=== PATIENT | male | born 1965 | race Caucasian/White ===

== ENCOUNTER 2018-06-26 07:56 | Day surgery (SDC) | payer OTHER ==
[~2018-06-26] VITALS: Ht 175.3 cm; Wt 67.6 kg
[~2018-06-26 07:56] MED LIST: SIMVASTATIN20 MG PO; THIOLA100 MG PO; TOPCARE ASPIRIN81 MG PO
[2018-06-26 08:14] VITALS: BP 126/84; PULSE 78; TEMP 97.8
[2018-06-26] MEDS ORDERED: UROCIT-K 5540 MG/TAB PO (08:18)
[2018-06-26 09:45] VITALS: BP 126/92; PULSE 70; TEMP 98
--- NOTE | 2018-06-26 09:45 | NUR ---
TO BAY 3 VIA CART FROM [facility] ROOM. PT WALKED TO CHAIR. IN ROOM, CALL LIGHT IN REACH, PT TAKES WATER AND MUFFIN
[2018-06-26 10:00] VITALS: BP 110/86; PULSE 59
[2018-06-26 10:15] VITALS: BP 103/68; PULSE 59
[2018-06-26 10:30] VITALS: BP 110/74; PULSE 62
--- NOTE | 2018-06-26 10:30 | NUR ---
INTO SEE PT AND , IV D'CD INTACT, PT UP AND DRESSED, REVIEWED DISCHARGE INST. WITH PT ON PRECAUTIONS AND ACTIVITY WITH FOLLOWUP WITH PRIMARY DR IF NEEDED, PT DISCHARGED VIA W/C TO CAR WITH AT 1046
== END 2018-06-26 10:45 | disposition home or self-care (01) ==
LOC: SDCO 07:56
DX: Z12.11 Encounter for screening for malignant neoplasm of colon (principal); Z80.0 Family history of malignant neoplasm of digestive organs
CPT/HCPCS: J2250; J2405; J3010